=== PATIENT | male | born 1960 | race Caucasian/White ===

== ENCOUNTER 2018-10-17 12:54 | Emergency (ER) | payer OTHER ==
[~2018-10-17 12:54] MED LIST changes: -VALS320T12 PO
--- NOTE | 2018-10-17 13:05 | ER Report ---
History and Physical Time Seen By MD: 13:05 Hx. of Stated Complaint: Pt. was in the shower this am, had an episode of dizziness and photophobia, and "blotchy" vision in the shower. took his BP and it was low. Pt. hypotensive on EMS arrival BP 69 systolic on first reading, but second reading by EMS 98/58. Pt. reports feeling like he has had a cold the past few days, and more tired the past couple of days. No fevers, no cough, no chills. Oral temp 97.2 HPI/ROS CHIEF COMPLAINT: Dizziness, lightheadedness, hypotension HISTORY OF PRESENT ILLNESS: Patient is a 58-year-old male here with complaints of several day history of general malaise episode of lightheadedness, vomiting near syncope, hypotension while in the shower this morning. Patient came in with EMS this morning for these symptoms. Patient describes a one week history of upper respiratory symptoms, decreased oral intake, general malaise. Patient was found be tachycardic, orthostatic on initial examination REVIEW OF SYSTEMS: Constitutional: No fever, + chills. Eyes: No discharge. ENT: No sore throat. Cardiovascular: No chest pain, no palpitations. Hypotension and tachycardia Respiratory: + cough, no shortness of breath. Gastrointestinal: No abdominal pain, no vomiting. Genitourinary: No hematuria. Musculoskeletal: No back pain. Skin: No rashes. Neurological: + headache, lightheadedness. Allergies: Coded Allergies: Penicillins (Verified Allergy, Mild, UNKNOWN, 10/17/18) BEE STINGS (Verified Allergy, Unknown, 10/17/18) house dust (Verified Allergy, Unknown, 10/17/18) Uncoded Allergies: hay fever (Allergy, Unknown, 01/12/18) Home Meds Active Scripts Atorvastatin Calcium (ATORVASTATIN CALCIUM) 80 Mg Tablet, 1 TAB PO QDAY, #90 TAB 3 Refills Prov:ALYSSA MARTIN MD 01/12/18 Valsartan/Hydrochlorothiazide (DIOVAN HCT 320-12.5 MG TAB) 1 Each Tablet, 1 EACH PO QDAY, #90 TAB 3 Refills Prov:ALYSSA MARTIN MD 01/12/18 Reported Medications Multivitamin (DAILY MULTIPLE VITAMIN) 1 Each Tablet, 1 TAB PO DAILY 5/7/18 Cholecalciferol (Vitamin D3) (VITAMIN D3) 1,000 Unit Tablet, 1000 UNIT PO QODAY, TAB 03/27/17 [vit B12 ] 500 mcg TAB No Conflict Check, SL QDAY 03/27/17 Omeprazole Magnesium (PRILOSEC OTC) 20 Mg Tablet., 1 TAB PO QDAY, TAB 03/27/17 Hx Smoking: No Smoking Status: Never Smoker Hx Substance Use Disorder: No Hx Alcohol Use: Yes (couple weekly) Constitutional Vital Sign - Last 24 Hours 10/17/18 10/17/18 10/17/18 10/17/18 12:51 12:54 13:00 13:04 Pulse 87 88 84 Resp 14 B/P (MAP) 88/55 88/55 (66) 86/50 (62) Pulse Ox 94 94 97 O2 Delivery Room Air 10/17/18 10/17/18 10/17/18 10/17/18 13:09 13:10 13:14 13:15 Pulse 83 81 Resp 18 20 B/P (MAP) 93/68 (76) 93/58 (70) Pulse Ox 97 96 10/17/18 10/17/18 10/17/18 10/17/18 13:19 13:24 13:29 13:30 Pulse 80 94 80 Resp 22 16 18 B/P (MAP) 94/63 (73) Pulse Ox 98 92 89 10/17/18 10/17/18 10/17/18 10/17/18 13:34 13:39 13:44 13:49 Pulse 78 82 82 76 Resp 16 12 9 19 Pulse Ox 97 97 98 97 10/17/18 10/17/18 10/17/18 10/17/18 13:54 13:59 14:04 14:08 Pulse 77 77 77 Resp 17 14 11 B/P (MAP) 98/73 (81) Pulse Ox 96 97 95 10/17/18 10/17/18 10/17/18 10/17/18 14:09 14:14 14:15 14:19 Pulse 85 96 84 Resp 13 12 15 B/P (MAP) 100/71 (81) Pulse Ox 97 96 96 10/17/18 10/17/18 10/17/18 10/17/18 14:24 14:29 14:34 14:39 Pulse 79 77 85 77 Resp 13 19 7 15 Pulse Ox 95 95 96 95 10/17/18 10/17/18 10/17/18 10/17/18 14:44 14:54 14:59 15:04 Pulse 76 88 79 74 Resp 8 16 15 14 Pulse Ox 97 97 97 98 10/17/18 10/17/18 10/17/18 10/17/18 15:09 15:14 15:19 15:24 Pulse 77 77 84 77 Resp 14 17 18 15 Pulse Ox 97 96 98 97 10/17/18 10/17/18 10/17/18 10/17/18 15:29 15:34 15:38 15:39 Pulse 79 80 78 Resp 16 14 15 B/P (MAP) 118/81 (93) Pulse Ox 96 96 97 10/17/18 10/17/18 10/17/18 10/17/18 15:44 15:54 15:59 16:04 Pulse 78 79 81 Resp 15 14 19 25 Pulse Ox 97 97 96 10/17/18 10/17/18 10/17/18 10/17/18 16:09 16:14 16:19 16:24 Pulse 88 84 84 79 Resp 34 19 21 17 Pulse Ox 94 96 95 10/17/18 10/17/18 10/17/18 10/17/18 16:29 16:34 16:43 16:44 Pulse 98 101 84 Resp 15 19 B/P (MAP) 121/82 (95) Pulse Ox 95 95 82 10/17/18 10/17/18 10/17/18 10/17/18 16:45 16:46 16:49 16:54 Pulse 115 103 B/P (MAP) 122/82 (95) 113/83 (93) Pulse Ox 92 92 10/17/18 10/17/18 10/17/18 10/17/18 16:59 17:04 17:09 17:14 Pulse 86 90 111 Pulse Ox 92 92 91 94 10/17/18 10/17/18 10/17/18 10/17/18 17:19 17:24 17:29 17:34 Pulse 100 107 98 104 Pulse Ox 91 89 95 91 10/17/18 10/17/18 10/17/18 10/17/18 17:39 17:44 17:49 17:54 Pulse 105 102 98 106 Pulse Ox 92 91 91 92 10/17/18 10/17/18 17:59 18:04 Pulse 87 100 Pulse Ox 91 92 Physical Exam General Appearance: The patient is alert, has no immediate need for airway protection and no signs of toxicity. Generalized weakness Eyes: Pupils equal and round no pallor or injection. ENT, Mouth: Mucous membranes are dry Respiratory: There are no retractions, lungs are clear to auscultation. Cardiovascular: Tachycardic Gastrointestinal: Abdomen is soft and non tender, no masses, bowel sounds normal. Neurological: No focal neurological deficits, alert and oriented Skin: Warm and dry, no rashes. Musculoskeletal: Neck is supple non tender. Extremities are nontender, nonswollen and have full range of motion. DIFFERENTIAL DIAGNOSIS: After history and physical exam differential diagnosis was considered for adult fever including but not limited to viral syndromes including influenza, urinary tract infection, pneumonia and sepsis. Medical Decision Making Data Points Result Diagram: 10/17/18 1311 10/17/18 1339 Laboratory Hematology Test 10/17/18 13:11 10/17/18 13:23 10/17/18 13:39 10/17/18 16:07 Red Blood Count 4.62 M/uL (4.00-5.60) Mean Corpuscular Volume 96.4 fL (80.0-96.0) Mean Corpuscular Hemoglobin 32.3 pg (26.0-33.0) Mean Corpuscular Hemoglobin Concent 33.6 g/dL (32.0-36.0) Red Cell Distribution Width 13.3 % (11.5-14.5) Mean Platelet Volume 9.6 fL (7.2-11.1) Neutrophils (%) (Auto) 56.7 % (39.4-72.5) Lymphocytes (%) (Auto) 26.3 % (17.6-49.6) Monocytes (%) (Auto) 13.8 % (4.1-12.4) Eosinophils (%) (Auto) 2.2 % (0.4-6.7) Basophils (%) (Auto) 1.0 % (0.3-1.4) Nucleated RBC Relative Count (auto) 0.0 /100WBC Neutrophils # (Auto) 3.0 K/uL (2.0-7.4) Lymphocytes # (Auto) 1.4 K/uL (1.3-3.6) Monocytes # (Auto) 0.7 K/uL (0.3-1.0) Eosinophils # (Auto) 0.1 K/uL (0.0-0.5) Basophils # (Auto) 0.1 K/uL (0.0-0.1) Nucleated RBC Absolute Count (auto) 0.00 K/uL Influenza Virus Type A (PCR) Negative (NEGATIVE) Influenza Virus Type B (PCR) Negative (NEGATIVE) Sodium Level 135 mmol/L (137-145) Potassium Level 4.8 mmol/L (3.5-5.0) Chloride Level 102 mmol/L (98-107) Carbon Dioxide Level 24 mmol/L (22-30) Blood Urea Nitrogen 23 mg/dl (9-21) Creatinine 1.60 mg/dl (0.66-1.25) Glomerular Filtration Rate Calc 44.5 Random Glucose 104 mg/dl (75-110) Calcium Level 9.2 mg/dl (8.4-10.2) Total Bilirubin 0.6 mg/dl (0.2-1.3) Aspartate Amino Transf (AST/SGOT) 50 U/L (0-35) Alanine Aminotransferase (ALT/SGPT) 49 U/L (0-56) Alkaline Phosphatase 85 U/L (0-126) Troponin I < 0.012 ng/ml Total Protein 7.4 g/dl (6.3-8.2) Albumin 4.3 g/dl (3.5-5.0) Thyroid Stimulating Hormone (TSH) 3.62 uIU/ml (0.46-4.68) Urine Color Yellow Urine Clarity Clear Urine pH 6.0 pH (4.8-9.5) Urine Specific Basile 1.006 Urine Protein Negative mg/dL (NEGATIVE) Urine Glucose (UA) Negative mg/dL (NEGATIVE) Urine Ketones Negative mg/dL (NEGATIVE) Urine Blood Negative (NEGATIVE) Urine Nitrite Negative (NEGATIVE) Urine Bilirubin Negative (NEGATIVE) Urine Urobilinogen Negative mg/dL (0.2-1.9) Urine Leukocyte Esterase Negative (NEGATIVE) Urine RBC <1 /HPF (0-2/HPF) Urine WBC 2 /HPF (0-5/HPF) Urine Squamous Epithelial Cells Few /LPF (</=FEW) Urine Bacteria Negative /HPF (NONE-FEW) Urine Mucus None /HPF (NONE-FEW) Test 10/17/18 16:22 Lactate 2.6 mmol/L (0.7-2.1) Chemistry Test 10/17/18 13:11 10/17/18 13:23 10/17/18 13:39 10/17/18 16:07 White Blood Count 5.4 k/uL (4.5-11.0) Red Blood Count 4.62 M/uL (4.00-5.60) Hemoglobin 14.9 g/dL (14.0-18.0) Hematocrit 44.5 % (42.0-52.0) Mean Corpuscular Volume 96.4 fL (80.0-96.0) Mean Corpuscular Hemoglobin 32.3 pg (26.0-33.0) Mean Corpuscular Hemoglobin Concent 33.6 g/dL (32.0-36.0) Red Cell Distribution Width 13.3 % (11.5-14.5) Platelet Count 167 K/uL (150-450) Mean Platelet Volume 9.6 fL (7.2-11.1) Neutrophils (%) (Auto) 56.7 % (39.4-72.5) Lymphocytes (%) (Auto) 26.3 % (17.6-49.6) Monocytes (%) (Auto) 13.8 % (4.1-12.4) Eosinophils (%) (Auto) 2.2 % (0.4-6.7) Basophils (%) (Auto) 1.0 % (0.3-1.4) Nucleated RBC Relative Count (auto) 0.0 /100WBC Neutrophils # (Auto) 3.0 K/uL (2.0-7.4) Lymphocytes # (Auto) 1.4 K/uL (1.3-3.6) Monocytes # (Auto) 0.7 K/uL (0.3-1.0) Eosinophils # (Auto) 0.1 K/uL (0.0-0.5) Basophils # (Auto) 0.1 K/uL (0.0-0.1) Nucleated RBC Absolute Count (auto) 0.00 K/uL Influenza Virus Type A (PCR) Negative (NEGATIVE) Influenza Virus Type B (PCR) Negative (NEGATIVE) Glomerular Filtration Rate Calc 44.5 Calcium Level 9.2 mg/dl (8.4-10.2) Total Bilirubin 0.6 mg/dl (0.2-1.3) Aspartate Amino Transf (AST/SGOT) 50 U/L (0-35) Alanine Aminotransferase (ALT/SGPT) 49 U/L (0-56) Alkaline Phosphatase 85 U/L (0-126) Troponin I < 0.012 ng/ml Total Protein 7.4 g/dl (6.3-8.2) Albumin 4.3 g/dl (3.5-5.0) Thyroid Stimulating Hormone (TSH) 3.62 uIU/ml (0.46-4.68) Urine Color Yellow Urine Clarity Clear Urine pH 6.0 pH (4.8-9.5) Urine Specific Basile 1.006 Urine Protein Negative mg/dL (NEGATIVE) Urine Glucose (UA) Negative mg/dL (NEGATIVE) Urine Ketones Negative mg/dL (NEGATIVE) Urine Blood Negative (NEGATIVE) Urine Nitrite Negative (NEGATIVE) Urine Bilirubin Negative (NEGATIVE) Urine Urobilinogen Negative mg/dL (0.2-1.9) Urine Leukocyte Esterase Negative (NEGATIVE) Urine RBC <1 /HPF (0-2/HPF) Urine WBC 2 /HPF (0-5/HPF) Urine Squamous Epithelial Cells Few /LPF (</=FEW) Urine Bacteria Negative /HPF (NONE-FEW) Urine Mucus None /HPF (NONE-FEW) Test 10/17/18 16:22 Lactate 2.6 mmol/L (0.7-2.1) Urinalysis Test 10/17/18 16:07 Urine Color Yellow Urine Clarity Clear Urine pH 6.0 pH (4.8-9.5) Urine Specific Basile 1.006 Urine Protein Negative mg/dL (NEGATIVE) Urine Glucose (UA) Negative mg/dL (NEGATIVE) Urine Ketones Negative mg/dL (NEGATIVE) Urine Blood Negative (NEGATIVE) Urine Nitrite Negative (NEGATIVE) Urine Bilirubin Negative (NEGATIVE) Urine Urobilinogen Negative mg/dL (0.2-1.9) Urine Leukocyte Esterase Negative (NEGATIVE) Urine RBC <1 /HPF (0-2/HPF) Urine WBC 2 /HPF (0-5/HPF) Urine Squamous Epithelial Cells Few /LPF (</=FEW) Urine Bacteria Negative /HPF (NONE-FEW) Urine Mucus None /HPF (NONE-FEW) Microbiology Microbiology Date/Time Source Procedure Growth Status 10/17/18 14:40 Blood Peripheral Draw Blood Culture - Preliminary NO GROWTH AFTER 2 DAYS, REINCUBATED Resulted 10/17/18 14:30 Blood Peripheral Draw Blood Culture - Preliminary NO GROWTH AFTER 2 DAYS, REINCUBATED Resulted EKG/Imaging Imaging Location: [facility] Patient: Destin Armstrong : 1960 Visit/Account:[id number] Date of Sevice: 10/17/2018 CHEST SINGLE AP HISTORY: cough COMPARISON: None FINDINGS: Cardiomediastinal contours: Borderline enlarged. Lungs and pleura: Mild bilateral hilar enlargement. No consolidation. Bones/soft tissues: Normal Other findings: None significant IMPRESSION: 1. Borderline cardiomegaly without edema. 2. No acute infiltrate. 3. Bilateral hilar enlargement, right greater than left may be secondary to enlarged pulmonary arteries. Lymphadenopathy or mass not excluded. No comparison examination. Recommend short interval follow-up chest x-ray versus CT chest with contrast for further evaluation. ED Course/Re-evaluation ED Course Patient is a 58-year-old male here status post near syncopal episode, hypo tension, general malaise 1 week likely in viral etiology, significant dehydration, orthostasis. Patient initially was noted to have an elevated lactate which significantly decreased on laboratory examination consistent with severe dehydration. Patient did not have a leukocytosis, responded well to intravenous fluid resuscitation. Patient had no focal neurological findings, and no infectious findings, chest x-ray was unremarkable, urine was noninfectious. Influenza was negative. Tachycardia responded well to fluid resuscitation. Patient had significant improvement in symptoms after fluid resuscitation. Close PCP follow-up recommended. Return precautions provided Decision to Disposition Date: Oct 17, 2018 Decision to Disposition Time: 17:53 Depart Departure Latest Vital Signs Vital Signs Date Time Temp Pulse Resp B/P (MAP) Pulse Ox O2 Delivery O2 Flow Rate FiO2 10/17/18 18:04 100 92 10/17/18 16:46 113/83 (93) 10/17/18 16:34 19 10/17/18 12:51 Room Air Impression: Primary Impression: Dehydration Additional Impression: Fatigue Condition: Improved Disposition: HOME OR SELF-CARE Patient Instructions: Dehydration (ED), Viral Syndrome (ED) Additional Instructions: Please drink plenty of water. You may take Tylenol or ibuprofen as needed for fevers. Please follow-up with next 24-48 hours with your primary care provider. Please hold off on taking your blood pressure medications until you're able to follow-up with her family doctor. Please return immediately if you develop worsening headache, increased weakness, inability to keep down food and fluids. Problem Qualifiers SINDHU SINGLETON DO Oct 17, 2018 13:05
[2018-10-17] MEDS ORDERED: NS(*) 0.9% 1000 ML BAG 1,000 ML IV ONE ×2 (13:22→18:00)
[2018-10-17 13:31] LABS: PLATELET COUNT, AUTOMATED 167 K/uL (150-450)
--- NOTE | 2018-10-17 13:56 | EKG ---
FACILITY: [facility] PATIENT NAME: TERI BRITT : [id number] MR: [id number] V: [id number] EXAM DATE: ORDERING PHYSICIAN: SINDHU SINGLETON TECHNOLOGIST: DENTON Test Reason : DIZZY Blood Pressure : / mmHG Vent. Rate : 077 BPM Atrial Rate : 077 BPM P-R Int : 198 ms QRS Dur : 092 ms QT Int : 402 ms P-R-T Axes : 017 036 021 degrees QTc Int : 454 ms Sinus rhythm Nonspecific ST findings Borderline ECG No previous ECGs available Confirmed by MEGAN REEVES ([id number]) on 10/17/2018 4:29:20 PM Referred By: MANI Confirmed By:MEGAN REEVES
--- NOTE | 2018-10-17 14:23 | RADIOLOGY IMAGING REPORT ---
FACILITY: [facility] [place] PATIENT NAME: Destin Armstrong : 1960 MR: [id number] V: [id number] EXAM DATE: ORDERING PHYSICIAN: SINDHU SINGLETON TECHNOLOGIST: Location: [facility] [place] Patient: Destin Armstrong : 1960 Visit/Account:[id number] Date of Sevice: 10/17/2018 CHEST SINGLE AP HISTORY: cough COMPARISON: None FINDINGS: Cardiomediastinal contours: Borderline enlarged. Lungs and pleura: Mild bilateral hilar enlargement. No consolidation. Bones/soft tissues: Normal Other findings: None significant IMPRESSION: 1. Borderline cardiomegaly without edema. 2. No acute infiltrate. 3. Bilateral hilar enlargement, right greater than left may be secondary to enlarged pulmonary arteri es. Lymphadenopathy or mass not excluded. No comparison examination. Recommend short interval follow- up chest x-ray versus CT chest with contrast for further evaluation. Report Dictated By: Pedro Pablo Barney MD at 10/17/2018 2:16 PM Report E-Signed By: Pedro Pablo Barney MD at 10/17/2018 2:18 PM WSN:[id number]
[2018-10-17 16:46] VITALS: BP 113/83
== END 2018-10-17 19:13 | disposition home or self-care (01) ==
LOC: ER 13:10
DX: E86.0 Dehydration (principal); R53.83 Other fatigue
CPT/HCPCS: 36415; 71045; 81001; 83605; 84443; 84484; 85025; 87040; 87502; 93005; 96360; 96361; 99284; J7030; 82040; 82247; 82310; 82374; 82435; 82565; 82947; 84075; 84132; 84155; 84295; 84450; 84460; 84520

== ENCOUNTER → 2018-10-17 | Outpatient (CLI) | payer OTHER ==
[~2018-10-17] MED LIST: ATOR-1 PO; ATOR40TA24 PO; ATR80PT PO; CHOL10005 PO; CHOL400C10 PO; IBUP600T22 PO; IRON; LOR5/325 PO; MULT-865 PO; OMEP-218 PO; PSEU120T69 PO; TRIA15CR40 TP; VALS1TAB75 PO; VALS320T12 PO; [UNRECOGNIZED DRUG - OTHER]; vit B12 SL
== END ==
LOC: AMB 12:27
PROVIDERS: ATTEND Nurse Practitioner
DX: R42 Dizziness and giddiness (principal); R53.83 Other fatigue; E16.2 Hypoglycemia, unspecified
CPT/HCPCS: A0425; A0427

== ENCOUNTER → 2018-10-29 | Outpatient (CLI) | payer OTHER ==
[~2018-10-29] MED LIST changes: +PRED20TA6 PO; +VALS320T12 PO
--- NOTE | 2018-10-29 16:34 | RADIOLOGY IMAGING REPORT ---
FACILITY: [facility] [place] PATIENT NAME: Destin Armstrong : 1960 MR: [id number] V: [id number] EXAM DATE: ORDERING PHYSICIAN: ALYSSA MARTIN TECHNOLOGIST: Location: [facility] [place], [place] Patient: Destin Armstrong : 1960 Visit/Account:[id number] Date of Sevice: 10/29/2018 Exam type: KNEE 3 VIEW LEFT History: left knee pain Comparison: None. Findings: There is moderate narrowing of the medial compartment of the left knee with extensive marginal spurri ng and subchondral cystic erosions along the distal medial femoral condyle. This mild narrowing of t he lateral compartment with mild marginal spurring. Moderate narrowing with marginal spurring also n oted patellofemoral joint. There suggestion of several loose bodies along the posterior aspect the l eft knee joint. Vascular calcifications are seen in the dorsal soft tissues. No evidence of acute f racture or dislocation IMPRESSION: 1. 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
== END ==
LOC: RAD 15:43
PROVIDERS: ATTEND Internal Medicine
DX: M25.562 Pain in left knee (principal)

== ENCOUNTER → 2018-11-12 | Outpatient (CLI) | payer OTHER ==
[~2018-11-12] MED LIST changes: +IOPAMIDOL 76% 100 ML INFUS BTL 100 ML ONE
--- NOTE | 2018-11-12 10:55 | RADIOLOGY IMAGING REPORT ---
FACILITY: [facility] PATIENT NAME: Destin Armstrong : 1960 MR: [id number] V: [id number] EXAM DATE: ORDERING PHYSICIAN: ALYSSA MARTIN TECHNOLOGIST: Location: [facility] Patient: Destin Armstrong : 1960 Visit/Account:[id number] Date of Sevice: 11/12/2018 CT CHEST W & W/O CON History: Bilateral hilar enlargement ADDITIONAL CLINICAL HISTORY: None TECHNIQUE: Contiguous axial images were performed through the chest to the level of the adrenal gla nds with and without IV contrast. Coronal and sagittal reformatting was also performed.Dose Lowerin g Technique One of the following dose optimization techniques was utilized in the performance of this exam: Autom ated exposure control; adjustment of the mA and/or kV according to the patient's size; or use of an i terative reconstruction technique. Specific details can be referenced in the facility's radiology C T exam operational policy. Contrast: 75 mL Isovue-370 COMPARISON STUDIES: AP chest favoring 2018. Lungs / Pleura: There is a 5 mm intrafissural nodule in the minor fissure on the right there is a 4 mm intrafissural nodule in the major fissure on the left Mediastinum/nodes: negative. Heart and vessels: There is advanced coronary artery calcifications are mild calcifications in the a ortic arch and branch vessels. Calcifications are also present in the pulmonary arteries the main pu lmonary artery is dilated at 3.7 cm. The interlobar pulmonary artery is dilated at 2.6 cm. These fi ndings would account for the recent chest radiograph findings Musculoskeletal / Body wall: There is severe spondylotic changes of the thoracic spine Upper abdomen: Incompletely imaged is moderate perinephric stranding bilaterally. There is severe diffuse hepatic steatosis. There are postsurgical changes of the stomach. There are accessory splen ules IMPRESSION: Advanced coronary artery calcifications with calcifications also noted at the aortic arch and the pul monary arteries There is dilatation of the pulmonary arterial tree which can be seen with pulmonary arterial hyperten tonia. These findings would account for the recent chest radiographic findings Incompletely imaged is moderate perinephric stranding bilaterally Severe diffuse hepatic steatosis Intrafissural nodules bilaterally measuring up to 5 mm FLEISCHNER SOCIETY FOLLOW-UP GUIDELINES FOR NEWLY DETECTED INCIDENTAL NODULES IN PERSONS 35 YEARS OF AGE OR OLDER. *These recommendations do NOT apply to lung cancer screening, patients with immunosuppression or [place] ents with a known primary malignancy. MULTIPLE SOLID NODULES If nodule size is < 6 mm: * Low risk patient ? No routine follow-up. * High risk patient ? Optional CT at 12 months. If nodule size is 6-8 mm: * Low risk patient ? CT at 3-6 months, then consider CT at 18-24 months if no change. * High risk patient ? CT at 3-6 months, then CT at 18-24 months if no change. If nodule size is > 8 mm: * Low risk patient ? CT at 3-6 months, then consider CT at 18-24 months if no change. * High risk patient ? CT at 3-6 months, then consider CT at 18-24 months if no change. LOW RISK PATIENT: Minimal or absent history of tobacco use and of other known risk factors. HIGH RISK PATIENT: Tobacco use, family history of lung cancer, upper pulmonary lobe location of nodul e, presence of emphysema, pulmonary fibrosis, older age. Alondra H, Susan DP, Ambar VICENTE, et al. Guidelines for Management of Incidental Pulmonary Nodules Dete cted on CT Images: From the Fleischner Society 2017. Radiology. [facility] Report Dictated By: Trish Salazar MD at 11/12/2018 10:16 AM Report E-Signed By: Trish Salazar MD at 11/12/2018 10:51 AM WSN:[email or web address]
== END ==
LOC: CT 11-05 00:36
PROVIDERS: ATTEND Internal Medicine
DX: I25.10 Atherosclerotic heart disease of native coronary artery without angina pectoris (principal); K76.0 Fatty (change of) liver, not elsewhere classified
CPT/HCPCS: 71270; Q9967

== ENCOUNTER → 2018-12-30 | Outpatient (CLI) | payer OTHER ==
[~2018-12-30] MED LIST changes: +ASPI-1471 PO; +EZET10TA41 PO; -IOPAMIDOL 76% 100 ML INFUS BTL 100 ML ONE
--- NOTE | 2018-12-30 16:37 | RADIOLOGY IMAGING REPORT ---
FACILITY: [facility] PATIENT NAME: Destin Armstrong : 1960 MR: [id number] V: [id number] EXAM DATE: ORDERING PHYSICIAN: SWATI CHAVIRA TECHNOLOGIST: Location: [facility] Patient: Destin Armstrong : 1960 Visit/Account:[id number] Date of Sevice: 12/30/2018 EXAMINATION: Single Isotope SPECT Imaging with Exercise and Gated SPECT Imaging DATE OF EXAMINATION: 12/30/2018 DATE OF INTERPRETATION: 12/30/2018 REQUESTING PHYSICIAN: SWATI CHAVIRA INDICATION: The patient is a 58-year-old male evaluated for high calcium score. PROCEDURE: After informed consent the patient received an intravenous injection of 13.9 mCi of Tc-9 9m sestamibi followed at the appropriate time interval by rest imaging. The patient then exercised a ccording to the standard Juan Daniel protocol for 3:15 minutes achieving 4 METS. Resting heart rate was 10 6 bpm with a peak heart rate of 164 bpm which is 101 % of maximal predicted heart rate for age. Blo od pressure at rest was 127 / 97; blood pressure during exercise was 160 / 90. There was no chest pa in during exercise. Exercise was discontinued because of reach target heart rate. Baseline EKG demo nstrates sinus rhythm. There were no EKG changes of ischemia at peak exercise. Approximately one mi nute and 30 seconds prior to the termination of exercise, the patient received an intravenous injecti on of 30.3 mCi of Tc-99m sestamibi followed by stress imaging. RAW DATA: Examination of the summed raw data revealed a adequate quality study. Increased GI uptake noted. MYOCARDIAL PERFUSION: The tomographic images demonstrate small sized, mild intensity defect in the b delmy to mid inferior wall on rest and stress imaging. No reversible defects noted. This is likely ki phragmatic attenuation. No transient ischemic dilation.. GATED IMAGES: The gated images demonstrate normal LVEF 62%. Normal regional wall motion. IMPRESSION: 1. Negative treadmill stress ECG for ischemia 2. Probably normal myocardial perfusion scan with attenuation artifact. 3. Normal LV systolic function; LVEF 62%. 4. Based on the results of this exam, the patient appears to be at low risk for future cardiovascular events. Report Dictated By: Heladio Enriquez at 12/30/2018 4:28 PM Report E-Signed By: Heladio Enriquez at 12/30/2018 4:33 PM WSN:[email or web address]
== END ==
LOC: RAD 00:27
PROVIDERS: ATTEND Internal Medicine Cardiovascular Disease
DX: R07.2 Precordial pain (principal)
CPT/HCPCS: 78452; 93005; A9500; 93017

== ENCOUNTER 2019-01-31 14:56 | Emergency (ER) | payer OTHER ==
--- NOTE | 2019-01-31 15:02 | ER Report ---
History and Physical Time Seen By MD: 15:02 Hx. of Stated Complaint: DIARRHEA FOR 3 DAYS. DIFFICULTY BREATHING TODAY HPI/ROS CHIEF COMPLAINT: Shortness of breath HISTORY OF PRESENT ILLNESS: 59-year-old male patient presents to emergency room with complaints shortness of breath. Patient states that he has been feeling sh ort of breath the last couple days. He's had several days of diarrhea and believes that may be contributing. He denies any fevers, chills, nausea, vomiting. He states he is not taking any medication for this. States that today things got significantly worse. He states that he feels like he is just unable to get a good breath in. The patient denies having any chest pain. He denies any headache. REVIEW OF SYSTEMS: Respiratory: As noted above. Cardiovascular: No chest pain, no palpitations. Gastrointestinal: As noted above. Musculoskeletal: No back pain. Allergies: Coded Allergies: Penicillins (Verified Allergy, Mild, UNKNOWN, 01/31/19) BEE STINGS (Verified Allergy, Unknown, 10/17/18) house dust (Verified Allergy, Unknown, 10/17/18) Uncoded Allergies: hay fever (Allergy, Unknown, 01/12/18) Home Meds Active Scripts Ondansetron 4 Mg Odt (ONDANSETRON 4 MG ODT) 4 Mg Tab.rapdis, 4 MG PO Q6H PRN for NAUSEA/VOMITING, #20 TAB Prov:ETHAN MACKENZIE 01/31/19 Ezetimibe (ZETIA) 10 Mg Tablet, 10 MG PO QDAY, #30 TAB 3 Refills Prov:ALYSSA MARTIN MD 12/02/18 Valsartan (DIOVAN) 320 Mg Tablet, 320 MG PO QDAY, #90 TAB 3 Refills Prov:ALYSSA MARTIN MD 10/28/18 Atorvastatin Calcium (ATORVASTATIN CALCIUM) 80 Mg Tablet, 1 TAB PO QDAY, #90 TAB 3 Refills Prov:ALYSSA MARTIN MD 01/12/18 Reported Medications Aspirin (ASPIR 81) 81 Mg Tablet.dr, 81 MG PO QDAY, TAB 12/10/18 Multivitamin (DAILY MULTIPLE VITAMIN) 1 Each Tablet, 1 TAB PO DAILY 01/12/18 Cholecalciferol (Vitamin D3) (VITAMIN D3) 1,000 Unit Tablet, 1000 UNIT PO QODAY, TAB 03/27/17 Omeprazole Magnesium (PRILOSEC OTC) 20 Mg Tablet., 1 TAB PO QDAY, TAB 03/27/17 Past Medical/Surgical History Patient has a past medical history of hypertension, hyperlipidemia, reflux, arthritis, back pain, alcohol use. Patient has surgical history of varicose vein surgery, gastric bypass, testicular repair, shoulder surgery, tonsillectomy. Reviewed Nurses Notes: Yes Hx Smoking: No Smoking Status: Never Smoker Hx Substance Use Disorder: No Hx Alcohol Use: Yes (couple weekly) Constitutional Vital Sign - Last 24 Hours 01/31/19 01/31/19 01/31/19 01/31/19 14:59 15:00 15:30 16:00 Temp 97.7 Pulse 126 131 109 105 Resp 28 63 25 B/P (MAP) 124/84 133/89 (104) Pulse Ox 95 95 94 94 O2 Delivery Room Air 01/31/19 16:30 Pulse 81 B/P (MAP) 125/84 (98) Pulse Ox 94 Physical Exam General Appearance: The patient is alert, has no immediate need for airway protection and no current signs of toxicity. Respiratory: Chest is non tender, lungs are clear to auscultation. Cardiac: regular rate and rhythm Gastrointestinal: Abdomen is soft and non tender, no masses, bowel sounds normal. Musculoskeletal: Neck: Neck is supple and non tender. Extremities have full range of motion and are non tender. Skin: No rashes or lesions. DIFFERENTIAL DIAGNOSIS: After history and physical exam differential diagnosis was considered for shortness of breath including but not limited to pulmonary infectious process, COPD, asthma, pulmonary embolus and congestive heart failure. Medical Decision Making Data Points Result Diagram: 01/31/19 1503 01/31/19 1503 Laboratory Hematology Test 01/31/19 15:03 01/31/19 15:22 Red Blood Count 5.13 M/uL (4.00-5.60) Mean Corpuscular Volume 94.9 fL (80.0-96.0) Mean Corpuscular Hemoglobin 32.7 pg (26.0-33.0) Mean Corpuscular Hemoglobin Concent 34.4 g/dL (32.0-36.0) Red Cell Distribution Width 13.9 % (11.5-14.5) Mean Platelet Volume 9.5 fL (7.2-11.1) Neutrophils (%) (Auto) 62.2 % (39.4-72.5) Lymphocytes (%) (Auto) 26.2 % (17.6-49.6) Monocytes (%) (Auto) 9.9 % (4.1-12.4) Eosinophils (%) (Auto) 0.8 % (0.4-6.7) Basophils (%) (Auto) 0.9 % (0.3-1.4) Nucleated RBC Relative Count (auto) 0.1 /100WBC Neutrophils # (Auto) 4.4 K/uL (2.0-7.4) Lymphocytes # (Auto) 1.9 K/uL (1.3-3.6) Monocytes # (Auto) 0.7 K/uL (0.3-1.0) Eosinophils # (Auto) 0.1 K/uL (0.0-0.5) Basophils # (Auto) 0.1 K/uL (0.0-0.1) Nucleated RBC Absolute Count (auto) 0.01 K/uL Prothrombin Time 13.0 seconds (12.0-14.4) Prothromb Time International Ratio 0.98 Activated Partial Thromboplast Time 27 seconds (23-35) Sodium Level 136 mmol/L (137-145) Potassium Level 3.7 mmol/L (3.5-5.0) Chloride Level 103 mmol/L (98-107) Carbon Dioxide Level 18 mmol/L (22-30) Blood Urea Nitrogen 13 mg/dl (9-21) Creatinine 1.00 mg/dl (0.66-1.25) Glomerular Filtration Rate Calc > 60.0 Random Glucose 118 mg/dl (75-110) Calcium Level 9.2 mg/dl (8.4-10.2) Total Bilirubin 1.2 mg/dl (0.2-1.3) Aspartate Amino Transf (AST/SGOT) 191 U/L (0-35) Alanine Aminotransferase (ALT/SGPT) 74 U/L (0-56) Alkaline Phosphatase 108 U/L (0-126) Troponin I < 0.012 ng/ml B-Type Natriuretic Peptide 6 pg/ml (0-100) Total Protein 8.1 g/dl (6.3-8.2) Albumin 4.5 g/dl (3.5-5.0) Urine Color Yellow Urine Clarity Slightly-cloudy Urine pH 6.0 pH (4.8-9.5) Urine Specific [place] 1.018 Urine Protein 30 mg/dL (NEGATIVE) Urine Glucose (UA) Negative mg/dL (NEGATIVE) Urine Ketones Trace mg/dL (NEGATIVE) Urine Blood Negative (NEGATIVE) Urine Nitrite Negative (NEGATIVE) Urine Bilirubin Negative (NEGATIVE) Urine Urobilinogen 4.0 mg/dL (0.2-1.9) Urine Leukocyte Esterase Negative (NEGATIVE) Urine RBC None /HPF (0-2/HPF) Urine WBC 1 /HPF (0-5/HPF) Urine Squamous Epithelial Cells Many /LPF (</=FEW) Urine Bacteria Negative /HPF (NONE-FEW) Urine Hyaline Casts Many /LPF (NONE-FEW) Urine Mucus Few /HPF (NONE-FEW) Chemistry Test 01/31/19 15:03 01/31/19 15:22 White Blood Count 7.1 k/uL (4.5-11.0) Red Blood Count 5.13 M/uL (4.00-5.60) Hemoglobin 16.8 g/dL (14.0-18.0) Hematocrit 48.7 % (42.0-52.0) Mean Corpuscular Volume 94.9 fL (80.0-96.0) Mean Corpuscular Hemoglobin 32.7 pg (26.0-33.0) Mean Corpuscular Hemoglobin Concent 34.4 g/dL (32.0-36.0) Red Cell Distribution Width 13.9 % (11.5-14.5) Platelet Count 179 K/uL (150-450) Mean Platelet Volume 9.5 fL (7.2-11.1) Neutrophils (%) (Auto) 62.2 % (39.4-72.5) Lymphocytes (%) (Auto) 26.2 % (17.6-49.6) Monocytes (%) (Auto) 9.9 % (4.1-12.4) Eosinophils (%) (Auto) 0.8 % (0.4-6.7) Basophils (%) (Auto) 0.9 % (0.3-1.4) Nucleated RBC Relative Count (auto) 0.1 /100WBC Neutrophils # (Auto) 4.4 K/uL (2.0-7.4) Lymphocytes # (Auto) 1.9 K/uL (1.3-3.6) Monocytes # (Auto) 0.7 K/uL (0.3-1.0) Eosinophils # (Auto) 0.1 K/uL (0.0-0.5) Basophils # (Auto) 0.1 K/uL (0.0-0.1) Nucleated RBC Absolute Count (auto) 0.01 K/uL Prothrombin Time 13.0 seconds (12.0-14.4) Prothromb Time International Ratio 0.98 Activated Partial Thromboplast Time 27 seconds (23-35) Glomerular Filtration Rate Calc > 60.0 Calcium Level 9.2 mg/dl (8.4-10.2) Total Bilirubin 1.2 mg/dl (0.2-1.3) Aspartate Amino Transf (AST/SGOT) 191 U/L (0-35) Alanine Aminotransferase (ALT/SGPT) 74 U/L (0-56) Alkaline Phosphatase 108 U/L (0-126) Troponin I < 0.012 ng/ml B-Type Natriuretic Peptide 6 pg/ml (0-100) Total Protein 8.1 g/dl (6.3-8.2) Albumin 4.5 g/dl (3.5-5.0) Urine Color Yellow Urine Clarity Slightly-cloudy Urine pH 6.0 pH (4.8-9.5) Urine Specific [place] 1.018 Urine Protein 30 mg/dL (NEGATIVE) Urine Glucose (UA) Negative mg/dL (NEGATIVE) Urine Ketones Trace mg/dL (NEGATIVE) Urine Blood Negative (NEGATIVE) Urine Nitrite Negative (NEGATIVE) Urine Bilirubin Negative (NEGATIVE) Urine Urobilinogen 4.0 mg/dL (0.2-1.9) Urine Leukocyte Esterase Negative (NEGATIVE) Urine RBC None /HPF (0-2/HPF) Urine WBC 1 /HPF (0-5/HPF) Urine Squamous Epithelial Cells Many /LPF (</=FEW) Urine Bacteria Negative /HPF (NONE-FEW) Urine Hyaline Casts Many /LPF (NONE-FEW) Urine Mucus Few /HPF (NONE-FEW) Coagulation Test 01/31/19 15:03 Prothrombin Time 13.0 seconds Prothromb Time International Ratio 0.98 Activated Partial Thromboplast Time 27 seconds Urinalysis Test 01/31/19 15:22 Urine Color Yellow Urine Clarity Slightly-cloudy Urine pH 6.0 pH (4.8-9.5) Urine Specific [place] 1.018 Urine Protein 30 mg/dL (NEGATIVE) Urine Glucose (UA) Negative mg/dL (NEGATIVE) Urine Ketones Trace mg/dL (NEGATIVE) Urine Blood Negative (NEGATIVE) Urine Nitrite Negative (NEGATIVE) Urine Bilirubin Negative (NEGATIVE) Urine Urobilinogen 4.0 mg/dL (0.2-1.9) Urine Leukocyte Esterase Negative (NEGATIVE) Urine RBC None /HPF (0-2/HPF) Urine WBC 1 /HPF (0-5/HPF) Urine Squamous Epithelial Cells Many /LPF (</=FEW) Urine Bacteria Negative /HPF (NONE-FEW) Urine Hyaline Casts Many /LPF (NONE-FEW) Urine Mucus Few /HPF (NONE-FEW) EKG/Imaging EKG Interpretation 12 lead EKG: Rhythm: Sinus tachycardia with ventricular rate of 114 bpm [place]: normal QRS: Low voltage QRS ST segments: normal Imaging CHEST PA LAT Additional pertinent History: Respiratory distress COMPARISON STUDIES: None FINDINGS: Support lines and catheters: None Lungs and Pleura: Lung eisenberg well expanded with no infiltrates or consolidations. No parenchymal mass lesions are seen. There are no effusions Heart and vasculature: Negative. Karla and Mediastinum: Negative. Bones and Chest wall: Prominent anterior osteophytic spurring change throughout the mid to lower thoracic spine. Upper Abdomen: Negative. IMPRESSION: 1. Negative chest for acute cardiopulmonary disease. Report Dictated By: Omar Cabrera MD at 01/31/2019 3:33 PM Report E-Signed By: Omar Cabrera MD at 01/31/2019 3:34 PM ED Course/Re-evaluation ED Course Patient admitted to an exam room, history and physical were obtained. Differential diagnoses were considered. On examination lungs are clear, heart is regular, abdomen is soft and nontender. Patient was able to maintain his oxygen saturations above 90%. IV was started, a CBC, CMP, troponin, EKG, chest x-ray were done. Lab results were unremarkable, troponin was negative. EKG shows a sinus tachycardia with a low-voltage QRS. Chest x-ray showed no acute cardiopulmonary processes. Patient was still seem to be short of breath. At that time to go ahead and do a CT pulmonary angiogram. That was read by the radiologist as negative as well. Patient received a dose of Ativan, 0.5 mg, all waiting for the read. On reevaluation patient states he is feeling better. Start rate is gone down to the 80s. I believe that he likely had some dehydration which triggered tachycardia which the results of the shortness of breath. I discussed this with patient. We will go ahead and put him on a clear liquid diet. I believe the diarrhea is likely viral in nature, as his lab results are unremarkable. Patient is verbalized understanding and agreement with plan. We will have him use Imodium as needed for diarrhea. He is to follow-up with his primary care provider next week. Patient was given a prescription for Zofran. Decision to Disposition Date: January 31, 2019 Decision to Disposition Time: 17:09 Depart Departure Latest Vital Signs Vital Signs Date Time Temp Pulse Resp B/P (MAP) Pulse Ox O2 Delivery O2 Flow Rate FiO2 01/31/19 16:30 81 125/84 (98) 94 01/31/19 16:00 25 01/31/19 14:59 97.7 Room Air Impression: Primary Impression: Gastroenteritis Condition: Improved Disposition: HOME OR SELF-CARE Referrals: ALYSSA MARTIN MD (PCP) New Scripts Ondansetron 4 Mg Odt (ONDANSETRON 4 MG ODT) 4 Mg Tab.rapdis 4 MG PO Q6H PRN for NAUSEA/VOMITING, #20 TAB Prov: ETHAN MACKENZIE 01/31/19 Patient Instructions: Gastroenteritis (ED) Additional Instructions: Increase fluid intake. Clear liquid diet for the next 24-48 hours. After that you may advance diet as tolerated starting with complex carbohydrates; rice, bread or pasta. Follow up with your primary care provider in the next week. Return to the ER if condition worsens. You may take over the counter Pepto Bismol as needed for cramping, diarrhea and discomfort. ETHAN MACKENZIE January 31, 2019 15:02
[2019-01-31] MEDS ORDERED: NS(*) 0.9% 1000 ML BAG 1,000 ML IV ONE (15:06)
[2019-01-31 15:32] LABS: PLATELET COUNT, AUTOMATED 179 K/uL (150-450)
[2019-01-31 15:33] LABS: INR 0.98
--- NOTE | 2019-01-31 15:39 | RADIOLOGY IMAGING REPORT ---
FACILITY: [facility] - [place] PATIENT NAME: Destin Armstrong : 1960 MR: [id number] V: [id number] EXAM DATE: ORDERING PHYSICIAN: ETHAN MACKENZIE TECHNOLOGIST: Location: [facility] - [place] Patient: Destin Armstrong : 1960 Visit/Account:[id number] Date of Sevice: 01/31/2019 CHEST PA LAT Additional pertinent History: Respiratory distress COMPARISON STUDIES: None FINDINGS: Support lines and catheters: None Lungs and Pleura: Lung eisenberg well expanded with no infiltrates or consolidations. No parenchymal ma ss lesions are seen. There are no effusions Heart and vasculature: Negative. Karla and Mediastinum: Negative. Bones and Chest wall: Prominent anterior osteophytic spurring change throughout the mid to lower tho racic spine. Upper Abdomen: Negative. IMPRESSION: 1. Negative chest for acute cardiopulmonary disease. Report Dictated By: Omar Cabrera MD at 01/31/2019 3:33 PM Report E-Signed By: Omar Cabrera MD at 01/31/2019 3:34 PM WSN:[id number]
[2019-01-31] MEDS ORDERED: IOPAMIDOL 76% 100 ML INFUS BTL 100 ML ONE (16:10)
[2019-01-31] MEDS ORDERED: NS(*) 0.9% 50 ML BAG 50 ML ONE (16:11)
[2019-01-31 16:30] VITALS: BP 125/84
[2019-01-31] MEDS ORDERED: ONDANSETRON 4 MG/2 ML VIAL IVP ONE (16:45)
--- NOTE | 2019-01-31 16:48 | EKG ---
FACILITY: [facility] - [place] PATIENT NAME: TERI BRITT : [id number] MR: [id number] V: [id number] EXAM DATE: ORDERING PHYSICIAN: ETHAN MACKENZIE TECHNOLOGIST: KATHY Test Reason : SOB Blood Pressure : / mmHG Vent. Rate : 114 BPM Atrial Rate : 114 BPM P-R Int : 184 ms QRS Dur : 084 ms QT Int : 330 ms P-R-T Axes : 012 086 048 degrees QTc Int : 454 ms Sinus tachycardia Low voltage QRS Unusual R wave progression through anterior precordial leads Borderline ECG Confirmed by MEGAN REEVES ([id number]) on 01/31/2019 5:58:02 PM Referred By: FABRIZIO Confirmed By:MEGAN REEVES
[2019-01-31] MEDS ORDERED: LORazepam 2 MG/ML VIAL IVP ONE (16:50)
--- NOTE | 2019-01-31 16:59 | RADIOLOGY IMAGING REPORT ---
[facility] PATIENT NAME: Destin Armstrong : 1960 MR: [id number] V: [id number] EXAM DATE: ORDERING PHYSICIAN: ETHAN MACKENZIE TECHNOLOGIST: Location: Patient: Destin Armstrong : 1960 Visit/Account:[id number] Date of Sevice: 01/31/2019 CT CTA CHEST W & W/O CON HISTORY: shortness of breath, tachycardic ADDITIONAL HISTORY: None. TECHNIQUE: CTA chest with contrast. 3D coronal slab MIPs and 2D reconstructions in the coronal and sagittal planes were also created. One of the following dose optimization techniques was utilized in the performance of this exam: Autom ated exposure control; adjustment of the mA and/or kV according to the patient's size; or use of an i terative reconstruction technique. Specific details can be referenced in the facility's radiology C T exam operational policy. CONTRAST: 75 [id number] COMPARISON: CT scan of chest from 11/12/2018 FINDINGS: Vessels: Pulmonary arteries well opacified with no pulmonary emboli identified. Heart and pericardium: Negative Mediastinum and hilum: Negative. Lymph nodes: Negative. Lungs/pleura: Lung eisenberg well aerated with no infiltrates consolidations or mass lesions. Visualized upper abdomen: Postsurgical sleeve gastrectomy change in the stomach. Lower neck: Negative. Bones/soft tissues: Negative. IMPRESSION: 1. Negative CT scan of the chest for pulmonary embolus. No acute cardiopulmonary disease. Report Dictated By: Omar Cabrera MD at 01/31/2019 4:46 PM Report E-Signed By: Omar Cabrera MD at 01/31/2019 4:55 PM WSN:[id number]
[2019-01-31] MEDS ORDERED: ONDA4TAB9 PO (17:10)
== END 2019-01-31 17:20 | disposition home or self-care (01) ==
LOC: ER 15:18
DX: K52.9 Noninfective gastroenteritis and colitis, unspecified (principal); R00.0 Tachycardia, unspecified
CPT/HCPCS: 71046; 71275; 81001; 83880; 84484; 85025; 85610; 85730; 93005; 96361; 96374; 96375; 99284; J2060; J2405; J7030; J7050; Q9967; 82040; 82247; 82310; 82374; 82435; 82565; 82947; 84075; 84132; 84155; 84295; 84450; 84460; 84520